=== PATIENT | female | born 1965 | race Caucasian/White ===

== ENCOUNTER → 2023-04-04 | Outpatient (CLI) | payer BC ==
--- NOTE | 2023-04-04 15:21 | XR ---
EXAMINATION TYPE: XR KUB DATE OF EXAM: 04/04/2023 Comparison: None Clinical History: 57-year-old female N20.0 KUB Findings: Surgical clips extending along the upper abdomen from side to side. A few surgical clips upper right pelvis and lower left pelvis. Nonobstructive bowel gas pattern. Small round calcifications in the pelvis likely phlebolith. A subtle 6 mm density left mid abdomen po ssible left renal calculus. Impression: 1. Small pelvic phleboliths. 2. 6 mm density left mid abdomen, questionable left renal stone. 3. Multiple surgical clips.
== END | disposition home or self-care (01) ==
LOC: RADXRMAIN 14:50
PROVIDERS: ATTEND Urology
DX: N20.0 Calculus of kidney (principal); I87.8 Other specified disorders of veins
CPT/HCPCS: 74018

== ENCOUNTER → 2023-05-18 | Outpatient (CLI) | payer BC ==
[2023-05-18 09:41] LABS: African American GFR (CKD) >90 (>60 ml/min/1.73 sqM); Blood Urea Nitrogen 15 mg/dL (7-17); Non-African American GFR(CKD) 82 (>60 ml/min/1.73 sqM)
--- NOTE | 2023-05-18 11:09 | CT ---
EXAMINATION: CT UROGRAM WITHOUT AND WITH IV CONTRAST DATE OF EXAMINATION: 05/18/2023. COMPARISON: None available. INDICATION: Gross hematuria. PROCEDURE: Axial CT of the abdomen and pelvis was performed with contrast and sagittal and coronal reformatted images were performed. CT dose lowering techniques were used, to include: automated expos ure control, adjustment for patient size, and/or use of iterative reconstruction. Maximum intensity p rojection and 3-D reformats were performed. 100 mL of Isovue-[id number] was given intravenously. FINDINGS: LOWER CHEST : The visualized lung bases are clear. There are no pleural or pericardial effusions. ABDOMEN: Liver and Biliary system: Normal. Adrenal glands: Normal. Kidneys and ureters: There is a 3 mm nonobstructing stone in the lower pole of the left kidney. There is mild atrophy otherwise seen of the left kidney. Kidneys and ureters otherwise appear unremarkable . There are no ureteral stones or hydronephrosis. There are no suspicious renal lesions seen at this time Spleen: Normal. Pancreas: Normal. Gallbladder: Surgically absent. Lymph nodes, Peritoneum and mesentery: There is no mesenteric or retroperitoneal lymphadenopathy. Gastrointestinal tract: There are no dilated loops of bowel or free intraperitoneal air. Appendix ap pears surgically absent. There are surgical changes of prior gastric bypass. There is a small hiat al hernia. Aorta/IVC: No aortic aneurysm. IVC normal. Abdominal wall: Normal. PELVIS: Fluid: There is no free fluid in the pelvis. Lymph Nodes: There is no pelvic or inguinal lymphadenopathy.. Urinary bladder: Normal. BONES: There are no osseous destructive lesions.. ADDITIONAL SIGNIFICANT FINDINGS: None. IMPRESSION: 1. Nonobstructing left renal stone. 2. No suspicious renal, urinary tract or bladder lesions identified. 3. Mild left renal atrophy.
== END | disposition home or self-care (01) ==
LOC: RADCTMAIN 08:47
PROVIDERS: ATTEND Urology
DX: N20.0 Calculus of kidney (principal); N26.1 Atrophy of kidney (terminal); R31.0 Gross hematuria
CPT/HCPCS: 82565; 84520; 74178; 36415; 74400; Q9967